=== PATIENT | female | born 1950 | race Caucasian/White ===

== ENCOUNTER → 2017-02-12 | Outpatient (CLI) | payer OTHER, MEDICARE | LOC: BRMIMAGING 14:22 | PROVIDERS: ATTEND Internal Medicine | DX: M77.31 Calcaneal spur, right foot (principal); M77.32 Calcaneal spur, left foot; M19.071 Primary osteoarthritis, right ankle and foot | CPT/HCPCS: 73130-PO; 73610-PO; 73630-PO ==

== ENCOUNTER → 2017-08-26 | Outpatient (CLI) | payer OTHER, MEDICARE | LOC: CIMAGING 12:15 | PROVIDERS: ATTEND Internal Medicine | DX: M43.16 Spondylolisthesis, lumbar region (principal); M51.36 Other intervertebral disc degeneration, lumbar region; M51.37 Other intervertebral disc degeneration, lumbosacral region | CPT/HCPCS: 72114-PO ==

== ENCOUNTER → 2018-12-02 | Outpatient (CLI) | payer OTHER, MEDICARE | LOC: CIMAGING 15:44 | PROVIDERS: ATTEND Physician Assistant Medical | DX: M54.9 Dorsalgia, unspecified (principal); M51.36 Other intervertebral disc degeneration, lumbar region; M43.16 Spondylolisthesis, lumbar region; M25.9 Joint disorder, unspecified; Z95.0 Presence of cardiac pacemaker | CPT/HCPCS: 72070-PO; 72100-PO; 73521-PO ==